=== PATIENT | male | born 1975 | race African-American/Black ===

== ENCOUNTER 2017-03-22 04:27 | Emergency (ER) | payer MEDICAID ==
[~2017-03-22] VITALS: Ht 170.2 cm; Wt 81.1 kg
[2017-03-22 07:59] VITALS: BP 138/81
== END 2017-03-22 08:23 | disposition home or self-care (01) ==
LOC: EMS 04:27
DX: S92.355A Nondisplaced fracture of fifth metatarsal bone, left foot, initial encounter for closed fracture (principal); F17.210 Nicotine dependence, cigarettes, uncomplicated; W22.8XXA Striking against or struck by other objects, initial encounter; Y93.01 Activity, walking, marching and hiking; Y92.89 Other specified places as the place of occurrence of the external cause; Y99.8 Other external cause status
CPT/HCPCS: 29515; 99284